=== PATIENT | male | born 1945 | race Caucasian/White ===

== ENCOUNTER 2021-02-17 01:30 | Inpatient (IN) | payer MEDICARE ==
[~2021-02-17] VITALS: Ht 167.6 cm; Wt 104.9 kg
--- NOTE | 2021-02-17 04:00 | NUR ---
PATIENT REPORT RECEIVED FROM NANY VAUGHAN AT BEDSIDE, ORDERED LABS, XRAY, ECG PATIENT AAOX4 AFIB, PVC NOTED IN THE MONITOR NC 5 L SKIN INTACT ABDOMEN DISTENDED PIV R AND L ARM, HEPARIN DRIP 16 UNITS WILL TO CONTINUE TO MONITOR
[2021-02-17] MEDS ORDERED: AMLODIPINE BES2.5 MG PO (04:54)
[2021-02-17] MEDS ORDERED: Aspir 8181 MG PO (04:55)
[2021-02-17] MEDS ORDERED: Celexa20 MG PO (04:55)
[2021-02-17] MEDS ORDERED: FURO20 PO (04:56)
[2021-02-17] MEDS ORDERED: GLIP10 PO (04:56)
[2021-02-17] MEDS ORDERED: LAMO25 PO (04:57)
[2021-02-17] MEDS ORDERED: LANTUS SOL100 UNIT/1 SC (04:57)
[2021-02-17] MEDS ORDERED: ZESTRIL40 M1 PO (04:58)
[2021-02-17] MEDS ORDERED: METO25ER PO (04:59)
[2021-02-17] MEDS ORDERED: METFORMIN ER1000 M2 PO (04:59)
[2021-02-17] MEDS ORDERED: Lovastatin20 MG PO (04:59)
[2021-02-17] MEDS ORDERED: NITR.4SL SL (05:00)
[2021-02-17] MEDS ORDERED: OMEP20ER PO (05:00)
[2021-02-17] MEDS ORDERED: POTA10T PO (05:01)
[2021-02-17 05:04] LABS: Source, Urine Clean Catch
[2021-02-17 05:06] LABS: Bilirubin, Urine Neg (Neg); Blood, Urine Neg (Neg); Glucose Qualitative, Urine Neg (Neg); Ketones, Urine Neg (Neg); Leukocyte Esterase, Urine Neg (Neg); Nitrite, Urine Neg (Neg); Protein, Urine Neg (Neg); Urobilinogen, Urine NORM (Normal)
[2021-02-17 05:20] LABS: BASOPHILS ABSOLUTE AUTO 0.08 K/mm3 (0.00-0.23); BASOPHILS PERCENT AUTO 1 % (0-2); EOSINOPHILS ABSOLUTE AUTO 0.26 K/mm3 (0.00-0.68); EOSINOPHILS PERCENT AUTO 3 % (0-6); Hematocrit 37.7 % (37.0-53.0); Hemoglobin 12.5 g/dL (13.5-17.5); IMMATURE GRAN ABSOLUTE AUTO 0.02 K/mm3 (0.00-0.10); IMMATURE GRAN PERCENT AUTO 0 % (0-1); LYMPHOCYTES ABSOLUTE AUTO 1.34 K/mm3 (0.84-5.20); LYMPHOCYTES PERCENT AUTO 14 % (21-46); MONOCYTES ABSOLUTE AUTO 0.82 K/mm3 (0.16-1.47); MONOCYTES PERCENT AUTO 9 % (4-13); Mean Corpuscular HGB 31.4 pg (26.0-34.0); Mean Corpuscular HGB Conc 33.2 g/dL (31.5-36.5); Mean Corpuscular Volume 95 fL (80-100); Mean Platelet Volume 11.3 fL (9.1-12.4); NEUTROPHILS PERCENT AUTO 73 % (41-73); Platelet Count 217 K/mm3 (150-400); RDW Standard Deviation 45.2 fL (35.1-46.3); Red Blood Cell Count 3.98 M/mm3 (4.30-5.90); White Blood Cell Count 9.42 K/mm3 (4.00-11.30)
[2021-02-17 05:33] LABS: International Normalized Ratio 1.26
[2021-02-17 05:44] LABS: Alanine Aminotransfer (ALT/SGP 44 U/L (12-78); Albumin, Blood 2.9 g/dL (3.4-5.0); Albumin/Globulin Ratio 0.8 (0.8-1.8); Alk Phos 69 U/L (50-136); Anion Gap 8 mmol/L (6-16); Aspartate Aminotrans (AST/SGOT 29 U/L (12-37); Bilirubin, Total 0.5 mg/dL (0.1-1.0); Blood Urea Nitrogen 23 mg/dL (8-24); CO2, Blood 25 mmol/L (21-32); CPK Creatine Kinase 85 U/L (39-308); Calcium, Blood 8.8 mg/dL (8.5-10.1); Chloride, Blood 111 mmol/L (98-108); Creatine Kinase MB 2.3 ng/mL (0.0-3.6); Creatine Kinase MB Index 2.7 (0.0-4.0); Creatinine, Blood 1.15 mg/dL (0.60-1.20); Globulin, Blood 3.6 g/dL (2.2-4.0); Glomerular Filtration Rate >60 (60-); Glucose, Blood 186 mg/dL (70-99); Potassium, Blood 3.2 mmol/L (3.5-5.5); Sodium, Blood 144 mmol/L (136-145); Total Protein, Blood 6.5 g/dL (6.4-8.2); Troponin I 0.207 ng/mL (0.000-0.040)
[2021-02-17 06:26] LABS: Appearance, Urine Clear (Clear); Color, Urine Yellow (P-Yellow)
--- NOTE | 2021-02-17 09:28 | NUR ---
ASSUMED PT CARE THIS AM. PT REPORT IV K VERY PAINFUL, IV SITE INSPECTED, NO S/SX INFECTION/INFILTRATION. DECREASED RATE OF K AND DILUTED WITH CONCURRENT NS, PT STILL UNABLE TO TOLERATE. MD ARIAS UPDATED. STATES OKAY TO HOLD FOR NOW, WILL DISCUSS PO K AFTER CARDIO CONSULT. ECHO BEING COMPLETED.
--- NOTE | 2021-02-17 12:11 | NUR ---
DR TORRE (CARDIO) CALLED TO UPDATE ON PT STATUS. STATES HE WILL SEE PT SOON. DR ARIAS UPATED ON PT STATUS, AT BEDSIDE NOW TO EVAL AND DISCUSS POC.
[2021-02-17 12:43] LABS: Creatine Kinase MB 2.4 ng/mL (0.0-3.6); Creatine Kinase MB Index 2.8 (0.0-4.0); Troponin I 0.246 ng/mL (0.000-0.040)
--- NOTE | 2021-02-17 13:50 | NUR ---
[id number]: MD TORRE UPDATED ON TROP LEVELS. HEP GTT ADJUSTED PER RX. MD TORRE IN TO SPEAK WITH PT, CONSULTING WITH MD BAE FOR POSSIBLE ANGIO TODAY.
[2021-02-17 14:49] LABS: SARS-Cov-2 (COVID-19) PCR, MMC NEGATIVE (NEGATIVE)
--- NOTE | 2021-02-17 18:20 | NUR ---
SHIFT SUMMARY PT A/OX4, VSS. PT REQUIRES 3-4L NC WHILE NAPPING TO MAINTAIN SATS GREATER THAN 90. ECHO COMPLETED, TROPS TRENDING UP SLIGHTLY. RELIABILITY ENGINEER CONSULTED, PLAN FOR CONTINUED DIURESIS, ANTICIPATING ANGIO TOMORROW. PT REPORTS DYPSNEA WITH MILD TO MODERATE ACTIVITY IN BED. NO REPORTS OF CHEST PAIN SINCE EARLY THIS AM. K REPLACED. URINATING WITHOUT ISSUE. REG DIET WITH 1L FR. PTS AT BEDSIDE DURING VISITING HOURS, UPDATED ON PT STATUS AND POC.
--- NOTE | 2021-02-17 19:09 | NUR ---
PATIENT REPORT RECEIVED FROM DAYSHIFT AAOX4 AFINB NOTED IN THE MONITOR NC 3 L SKIN INTACT WDL GI WDL CISCO TO CONTINUE TO MONITOR
[2021-02-17 21:14] LABS: Creatine Kinase MB 2.5 ng/mL (0.0-3.6); Creatine Kinase MB Index 2.6 (0.0-4.0); Troponin I 0.193 ng/mL (0.000-0.040)
--- NOTE | 2021-02-18 01:00 | NUR ---
0100 PATIENT FIND IN RESPIRATORY ARREST 0100 CODE BLUE TEAM WAS ACTIVATED 0137 PATIENT WAS INTUBATED AND SEDATED MD BAXTER AT BEDSIDE
[2021-02-18 02:12] LABS: PCO2 Arterial 47.9 mmHg (35-45); PO2 Arterial 87.7 mmHg (80-100); pH Blood Arterial 7.36 (7.35-7.45)
[2021-02-18 02:23] LABS: BASOPHILS ABSOLUTE AUTO 0.09 K/mm3 (0.00-0.23); BASOPHILS PERCENT AUTO 1 % (0-2); EOSINOPHILS ABSOLUTE AUTO 0.27 K/mm3 (0.00-0.68); EOSINOPHILS PERCENT AUTO 3 % (0-6); Hematocrit 36.7 % (37.0-53.0); Hemoglobin 12.3 g/dL (13.5-17.5); IMMATURE GRAN ABSOLUTE AUTO 0.03 K/mm3 (0.00-0.10); IMMATURE GRAN PERCENT AUTO 0 % (0-1); LYMPHOCYTES ABSOLUTE AUTO 1.28 K/mm3 (0.84-5.20); LYMPHOCYTES PERCENT AUTO 14 % (21-46); MONOCYTES ABSOLUTE AUTO 0.79 K/mm3 (0.16-1.47); MONOCYTES PERCENT AUTO 8 % (4-13); Mean Corpuscular HGB 32.7 pg (26.0-34.0); Mean Corpuscular HGB Conc 33.5 g/dL (31.5-36.5); Mean Corpuscular Volume 98 fL (80-100); Mean Platelet Volume 11.5 fL (9.1-12.4); NEUTROPHILS ABSOLUTE AUTO 6.98 K/mm3 (1.96-9.15); NEUTROPHILS PERCENT AUTO 74 % (41-73); Platelet Count 194 K/mm3 (150-400); RDW Coefficient Variation 13.4 % (11.7-14.2); RDW Standard Deviation 47.6 fL (35.1-46.3); Red Blood Cell Count 3.76 M/mm3 (4.30-5.90); White Blood Cell Count 9.44 K/mm3 (4.00-11.30)
[2021-02-18 02:31] LABS: Albumin, Blood 2.8 g/dL (3.4-5.0); Anion Gap 7 mmol/L (6-16); Blood Urea Nitrogen 23 mg/dL (8-24); Bun/Creatinine Ratio 16.8 (12.0-20.0); CO2, Blood 28 mmol/L (21-32); Calcium, Blood 8.3 mg/dL (8.5-10.1); Chloride, Blood 108 mmol/L (98-108); Creatinine, Blood 1.37 mg/dL (0.60-1.20); Glomerular Filtration Rate 50 (60-); Glucose, Blood 187 mg/dL (70-99); Magnesium, Blood 1.5 mg/dL (1.6-2.4); Phosphorus, Blood 4.2 mg/dL (2.5-4.9); Potassium, Blood 3.4 mmol/L (3.5-5.5); Sodium, Blood 143 mmol/L (136-145); Troponin I 0.169 ng/mL (0.000-0.040)
[2021-02-18 06:03] LABS: BASOPHILS ABSOLUTE AUTO 0.08 K/mm3 (0.00-0.23); BASOPHILS PERCENT AUTO 1 % (0-2); EOSINOPHILS ABSOLUTE AUTO 0.19 K/mm3 (0.00-0.68); EOSINOPHILS PERCENT AUTO 2 % (0-6); Hematocrit 36.9 % (37.0-53.0); Hemoglobin 12.2 g/dL (13.5-17.5); IMMATURE GRAN ABSOLUTE AUTO 0.04 K/mm3 (0.00-0.10); IMMATURE GRAN PERCENT AUTO 0 % (0-1); LYMPHOCYTES ABSOLUTE AUTO 1.92 K/mm3 (0.84-5.20); LYMPHOCYTES PERCENT AUTO 16 % (21-46); MONOCYTES ABSOLUTE AUTO 1.12 K/mm3 (0.16-1.47); MONOCYTES PERCENT AUTO 9 % (4-13); Mean Corpuscular HGB 31.4 pg (26.0-34.0); Mean Corpuscular HGB Conc 33.1 g/dL (31.5-36.5); Mean Corpuscular Volume 95 fL (80-100); Mean Platelet Volume 11.9 fL (9.1-12.4); NEUTROPHILS PERCENT AUTO 72 % (41-73); Platelet Count 243 K/mm3 (150-400); RDW Coefficient Variation 12.9 % (11.7-14.2); RDW Standard Deviation 44.7 fL (35.1-46.3); Red Blood Cell Count 3.89 M/mm3 (4.30-5.90); White Blood Cell Count 12.05 K/mm3 (4.00-11.30)
--- NOTE | 2021-02-18 06:07 | NUR ---
PATIENT SHOWED SOME SVT, PVC AND VTACH ON THE MONITOR. MD SANTILLAN NOTIFIED. NOT NEW ORDERS GIVEN. WILL TO CONTINUE TO MONITO
[2021-02-18 06:16] LABS: Albumin, Blood 2.7 g/dL (3.4-5.0); Albumin/Globulin Ratio 0.8 (0.8-1.8); Bilirubin, Total 0.7 mg/dL (0.1-1.0); Bun/Creatinine Ratio 18.5 (12.0-20.0); Calcium, Blood 8.4 mg/dL (8.5-10.1); Creatinine, Blood 1.3 mg/dL (0.60-1.20); Globulin, Blood 3.6 g/dL (2.2-4.0); Total Protein, Blood 6.3 g/dL (6.4-8.2)
--- NOTE | 2021-02-18 07:42 | NUR ---
0719 AFIB, AMIODARONE GTT INFUSING, NOTIFIED AND DR TORRE PATEINT CODED, ESTIMATE 5 MINUTES CPR, ONE SHOCK 120 J, PATEINT RECEIVED, MAGNESIUM, CALCIUM GLUCONATE, RESUMED RBB NSR AND FREQUENT PVC
--- NOTE | 2021-02-18 07:58 | NUR ---
DR SWEEP HERE
--- NOTE | 2021-02-18 07:58 | NUR ---
dr milian in room, patient coded a second time, see code record, patient rushed to label sewer, patient's notified, she is on her way to the hospital
[2021-02-18 08:07] LABS: BASOPHILS ABSOLUTE AUTO 0.09 K/mm3 (0.00-0.23); BASOPHILS PERCENT AUTO 1 % (0-2); EOSINOPHILS ABSOLUTE AUTO 0.24 K/mm3 (0.00-0.68); EOSINOPHILS PERCENT AUTO 2 % (0-6); Hematocrit 36.3 % (37.0-53.0); Hemoglobin 12.2 g/dL (13.5-17.5); IMMATURE GRAN PERCENT AUTO 1 % (0-1); LYMPHOCYTES ABSOLUTE AUTO 2.38 K/mm3 (0.84-5.20); LYMPHOCYTES PERCENT AUTO 20 % (21-46); MONOCYTES ABSOLUTE AUTO 1.09 K/mm3 (0.16-1.47); MONOCYTES PERCENT AUTO 9 % (4-13); Mean Corpuscular HGB 31.7 pg (26.0-34.0); Mean Corpuscular HGB Conc 33.6 g/dL (31.5-36.5); Mean Corpuscular Volume 94 fL (80-100); Mean Platelet Volume 11.7 fL (9.1-12.4); NEUTROPHILS ABSOLUTE AUTO 7.92 K/mm3 (1.96-9.15); NEUTROPHILS PERCENT AUTO 67 % (41-73); Platelet Count 241 K/mm3 (150-400); RDW Coefficient Variation 12.9 % (11.7-14.2); RDW Standard Deviation 44.3 fL (35.1-46.3); Red Blood Cell Count 3.85 M/mm3 (4.30-5.90); White Blood Cell Count 11.82 K/mm3 (4.00-11.30)
[2021-02-18 08:20] LABS: Alanine Aminotransfer (ALT/SGP 37 U/L (12-78); Albumin, Blood 2.7 g/dL (3.4-5.0); Albumin/Globulin Ratio 0.8 (0.8-1.8); Alk Phos 67 U/L (50-136); Anion Gap 7 mmol/L (6-16); Aspartate Aminotrans (AST/SGOT 31 U/L (12-37); Bilirubin, Total 0.6 mg/dL (0.1-1.0); Blood Urea Nitrogen 23 mg/dL (8-24); Bun/Creatinine Ratio 17.6 (12.0-20.0); CO2, Blood 27 mmol/L (21-32); Calcium, Blood 8.4 mg/dL (8.5-10.1); Chloride, Blood 107 mmol/L (98-108); Creatinine, Blood 1.31 mg/dL (0.60-1.20); Globulin, Blood 3.6 g/dL (2.2-4.0); Glomerular Filtration Rate 53 (60-); Glucose, Blood 221 mg/dL (70-99); Phosphorus, Blood 2.9 mg/dL (2.5-4.9); Potassium, Blood 3.5 mmol/L (3.5-5.5); Sodium, Blood 141 mmol/L (136-145); Total Protein, Blood 6.3 g/dL (6.4-8.2)
--- NOTE | 2021-02-18 11:22 | NUR ---
New order for [facility] entered due to Code Blue this am and earlier in the am also. Pt currently in the cathodic protection technician. Further update obtained from ICU transmitter engineer in charge. EMR reviewed. Plan is for acute care transfer to [facility]. Pt currently on impella heart pump. His EF was 25-30% prior to code blue events. Pt was admitted with hx of CP and increased SOB x weeks, NSTEMI, acute CHF, deion pleural effussions. He now has worsening pulm edema and cardiogenic shock leading to second code blue. Family is here and has been updated by Drs and dog breeder. If pt readmitted to [facility], will follow again or if current plan changes will follow.
--- NOTE | 2021-02-18 11:37 | NUR ---
Upon responding to a call-back from RN Airbrush Painter, Amparo, I meet with the patient's family (Ilda, Melba and Melida)in the Pouncing Machine Operator waiting rm. Ilda is visibly shaken by the news of her 's condition. I provide therapeutic listening, the distraction of having her tell her life story, a calming presence and prayer. They get word that the patient is stable and a possible transfer to [facility] is in the works. Family, especially Ilda, begin to show signs of increased peace and reduced stress. I will continue to remain available.
--- NOTE | 2021-02-18 13:45 | NUR ---
1345 BACK TO PATIENTS ROOM FROM CLINICAL NURSE LEADER, S/P STENT X5 PLACEMENT AND IMPELLA PLACEMENT, SOO ARRESTED X2 IN CLINICAL NURSE LEADER DURING THE PROCEDURE, THE PATIENT RECEIVED MULTIPLE DOSES OF HEPARIN, NEOSYNEPHRINE, CURRENTLY PRESSSORS AT LEVO AT 20, DOPA @20, LEVO @ 20, AMIO @0.5, LIDO @4, IMPELLA TO LEFT FEMORAL OOZING, FEM STOP PLACED BY DR BAE. RIGHT FEMORAL COOLING CATHETER/ CENTRAL LINE AND RIGHT FEMORAL SWAN GOMEZ CATHETER.
--- NOTE | 2021-02-18 13:46 | NUR ---
DR CLARKE AT BEDSIDE IN PATIENT ROOM, PATIENT RETURNED FROM GASTROENTEROLOGY TECHNICIAN AND POSSIBLE IMPELLA MOVED, ECHO AT BEDSIDE, IMPELLA REP ON THE PHONE WITH DR CLARKE. NG TO ELOY GILLIS, /20/100%
--- NOTE | 2021-02-18 13:51 | NUR ---
MAP PER IMPELLA IN THE 40S, FLOW DECREASED TO P2, AND CPR STARTED. AMP OF EPI, PROPOFOL SHUT OFF, 1354 EPI GTT STARTED AND ANOTHER AMP OF EPI GIVEN. 1357 3 AMP OF EPI, LABS CODE PANEL SENT. 1400 BIACRB AMP X3, VBG DRAWN. 1409 EPI GTT STARTED AT 10 MCG/MIN, IMPELLA MAP AT 64, HEART RATE 77, MAP DROPPED TO 51, INCREASED EPI TO [address] BAE. 1412 SVR 922, INDEX 1.8, HEMODYNAMIC NUMBERS COMMUNICATED TO THE IMPELLA REP LLOYD AND DR BAE. 1413 4TH DOSE OF EPI GIVEN, PATIENTS STATUS CHANGED TO DNR. 1414 AND DAUGHTERS AT BEDSIDE. 1422 NS BOLUS 1000ML, 1429 HEART RATE 77, MAP 50, IMPELLA CHANGED FROM P7 TO P9, DR TRAMMELL AT BEDSIDE, PALLIATIVE ORDER. 1530 DOBUTREX STARTED AT 20, RIGHT BRACIAL ART LINE PLACE. 1536 5TH DOSE OF EPI. 1538 EPI GTT INCREASED TO 30. 1600 RESTRAINTS OFF, FAMILY WISHES FOR WETTLE SERVICES IN [place], [place]. 1613 HEART RATE 34, FAMILY WISHES TO WITHDRAW LIFESUPPORT. 1621 IMPELLA OFF, VENTILATOR OFF, HEART RATE 0, ALL GTTS OFF, FINAL DISCHARGE PER JACEY.
[2021-02-18 14:05] LABS: Base Excess Venous 0 mmol/L; Bicarbonate Venous 23.8 mmol/L (24.0-30.0); PCO2 Venous 52.8 mmHg (38-42); PO2 Venous 50.2 mmHg (38-42); pH Blood Venous 7.31 (7.34-7.37)
[2021-02-18 15:49] LABS: Hematocrit 30.1 % (37.0-53.0); Hemoglobin 9.8 g/dL (13.5-17.5)
[2021-02-18 16:06] LABS: Albumin, Blood 1.9 g/dL (3.4-5.0); Albumin/Globulin Ratio 0.6 (0.8-1.8); Bun/Creatinine Ratio 18.1 (12.0-20.0); Calcium, Blood 7.4 mg/dL (8.5-10.1); Creatinine, Blood 1.38 mg/dL (0.60-1.20); Potassium, Blood 3.3 mmol/L (3.5-5.5); Total Protein, Blood 4.9 g/dL (6.4-8.2)
--- NOTE | 2021-02-18 16:15 | NUR ---
FAMILY WENT HOME, PATIENT BELONGINGS GIVEN TO , INCLUDING [employer], MEDIUM SIZED [employer] SUITCASE FULL OF PATIENTS BELONGINGS
[2021-02-18 16:19] LABS: Troponin I 1.57 ng/mL (0.000-0.040)
--- NOTE | 2021-02-20 15:10 | NUR ---
[facility] MAILED A WHITE ELECTRICAL CORD TO SPOUSE MISHA AT [address] IN [place] TODAY. PER JACEY MENDOZA-SPOUSE WAS AWARE ITEM BEING RETURNED VIA MAIL.
== END 2021-02-18 16:21 | DRG 215 ==
LOC: ICUE 01:30
PROVIDERS: Family Medicine; Internal Medicine Cardiovascular Disease; Student in an Organized Health Care Education/Training Program; ADMIT Internal Medicine
PROC: 027137Z Dilation of Coronary Artery, Two Arteries with Four or More Drug-eluting Intraluminal Devices, Percutaneous Approach (ICD-10-PCS; principal; 2021-02-18)
PROC: 02HA3RZ Insertion of Short-term External Heart Assist System into Heart, Percutaneous Approach (ICD-10-PCS; 2021-02-18)
PROC: 5A0221D Assistance with Cardiac Output using Impeller Pump, Continuous (ICD-10-PCS; 2021-02-18)
PROC: 4A023N8 Measurement of Cardiac Sampling and Pressure, Bilateral, Percutaneous Approach (ICD-10-PCS; 2021-02-18)
PROC: B2111ZZ Fluoroscopy of Multiple Coronary Arteries using Low Osmolar Contrast (ICD-10-PCS; 2021-02-18)
PROC: 0BH18EZ Insertion of Endotracheal Airway into Trachea, Via Natural or Artificial Opening Endoscopic (ICD-10-PCS; 2021-02-18)
PROC: 5A1935Z Respiratory Ventilation, Less than 24 Consecutive Hours (ICD-10-PCS; 2021-02-18)
PROC: 5A1221J Performance of Cardiac Output, Continuous, Automated (ICD-10-PCS; 2021-02-18)
PROC: 3E033XZ Introduction of Vasopressor into Peripheral Vein, Percutaneous Approach (ICD-10-PCS; 2021-02-18)
DX: I21.4 Non-ST elevation (NSTEMI) myocardial infarction (principal); I50.21 Acute systolic (congestive) heart failure; J96.01 Acute respiratory failure with hypoxia; I47.2 Ventricular tachycardia; N17.9 Acute kidney failure, unspecified; C34.91 Malignant neoplasm of unspecified part of right bronchus or lung; C79.9 Secondary malignant neoplasm of unspecified site; Z66 Do not resuscitate; E11.9 Type 2 diabetes mellitus without complications; K21.9 Gastro-esophageal reflux disease without esophagitis; Z20.822 Contact with and (suspected) exposure to COVID-19; I25.10 Atherosclerotic heart disease of native coronary artery without angina pectoris; I25.5 Ischemic cardiomyopathy; I11.0 Hypertensive heart disease with heart failure; I49.01 Ventricular fibrillation; E87.6 Hypokalemia; E83.42 Hypomagnesemia; R57.0 Cardiogenic shock; E78.5 Hyperlipidemia, unspecified; Z79.82 Long term (current) use of aspirin; Z79.4 Long term (current) use of insulin; Z79.899 Other long term (current) drug therapy; Z78.1 Physical restraint status
CPT/HCPCS: 31500; 33990; 36415; 36556; 36600; 36620; 51702; 71045; 75630; 76937; 80053; 80069; 81003; 82550; 82553; 82803; 82947; 83605; 83735; 83880; 84100; 84484; 85014; 85018; 85025; 85347; 85610; 85730; 92920; 92960; 93005; 93010; 93308; 93458; 93460; 94002; 94003; 94640; A9270; C1725; C1760; C1769; C1874; C1887; C1894; C8929; C9113; C9600; J0171; J0282; J0330; J0610; J1250; J1265; J1644; J1815; J1940; J2001; J2250; J2370; J2704; J3010; J3475; J3480; J7030; J7040; J7050; J7060; J7070; Q9957; Q9967; U0004